=== PATIENT | female | born 1985 | race American Indian/Alaskan Native ===

== ENCOUNTER 2017-03-31 17:44 | Emergency (ER) | payer OTHER ==
[2017-03-31 18:38] LABS: Bacteria,Urine 1+ /HPF (Negative); Bilirubin,Urine NEG (Negative); Blood,Urine NEG (Negative); Ketones,Urine NEG (Negative); Leukocyte Esterase,Urine NEG (Negative); Mucus,Urine FEW /HPF; Nitrite,Urine NEG (Negative); Protein,Urine <15 mg/dL mg/dL (Negative); Urobilinogen,Urine < 2.0 mg/dL (<2.0)
[2017-03-31 18:52] LABS: Basophils % (Auto) 0.8 % (0.0-1.8); Eosinophils % (Auto) 5.1 % (0.0-4.3); Hematocrit 38.9 % (30.3-42.9); Hemoglobin 13.1 gm/dl (10.1-14.3); Mean Corpuscular HGB Conc 34 % (30-34); Mean Corpuscular Hemoglobin 30 pg (28-32); Mean Corpuscular Volume 90 fl (79-97); Platelet Count 226 K/mm3 (140-440); Red Blood Count 4.31 M/mm3 (3.65-5.03); Red Cell Distribution Width 14.5 % (13.2-15.2); White Blood Count 6.6 K/mm3 (4.5-11.0)
[2017-03-31 19:12] LABS: Alanine Aminotransferase 15 units/L (7-56); Albumin 4.1 g/dL (3.9-5); Albumin/Globulin Ratio 1.3 %; Alkaline Phosphatase 67 units/L (35-129); Anion Gap 16 mmol/L; BUN/Creatinine Ratio 16; Blood Urea Nitrogen 11 mg/dL (7-17); Calcium 9.3 mg/dL (8.4-10.2); Carbon Dioxide 24 mmol/L (22-30); Chloride 101.7 mmol/L (98-107); Glucose 91 mg/dL (65-100); Lipase 19 units/L (13-60); Potassium 4.1 mmol/L (3.6-5.0); Sodium 138 mmol/L (137-145); Total Protein 7.3 g/dL (6.3-8.2)
[2017-04-01] MEDS ORDERED: TYLENOL PO ONE (00:39)
--- NOTE | 2017-04-01 00:43 | Emergency Department Report ---
ED Female HPI - General Chief complaint: Abdominal Pain Stated complaint: BODY PAIN, SIDE PAIN Time Seen by Provider: 04/01/17 00:25 Source: patient Mode of arrival: Ambulatory Limitations: No Limitations - History of Present Illness Initial comments: 31 yo female with no significant past medical history presents to the hospital complaining abdominal pain 1 day. Patient having epigastric pain described as intermittent, dull, aching. Palpation. No alleviating factors. Patient also states she is with LMP 02/18/2017. No care. She has intermittent sharp suprapubic pain and noticed some mild brown discharge today. Patient found out she was last week when she went to the PMD for UTI symptoms. UA negative at that time. Patient continues to have dysuria and frequency. Positive nausea without vomiting or fever. This is patient's fifth and she has 2 children, one miscarriage and one reported. - Related Data Previous Rx's Medication Instructions Recorded Last Taken Type Famotidine [Pepcid] 20 mg PO BID #30 tablet 04/01/17 Unknown Rx Allergies Allergy/AdvReac Type Severity Reaction Status Date / Time No Known Allergies Allergy Unverified 03/31/17 18:04 ED Review of Systems ROS: Stated complaint: BODY PAIN, SIDE PAIN Other details as noted in HPI Comment: All other systems reviewed and negative Other: Constitutional: No fevers chills or weight loss Eyes: No eye pain visual changes or discharge ENT: No ear pain or throat pain Neck: Denies pain Respiratory: Denies cough wheezing shortness of breath Cardiovascular: Denies chest pain, palpitations, syncope GI: Denies abdominal pain, nausea, vomiting, diarrhea : as per hpi Musculoskeletal: lower back pain Skin: Denies rash, lesions, erythema Neurologic: Denies headache, numbness, weakness Psychiatric: Denies suicidal ideation, hallucinations ED Past Medical Hx - Past Medical History Previous Medical History?: No Additional medical history: heart murmur. Right pelvic kidney - Surgical History Past Surgical History?: No - Social History Smoking Status: Current Some Day Smoker Substance Use Type: None - Medications Home Medications: Home Medications Medication Instructions Recorded Confirmed Last Taken Type Famotidine [Pepcid] 20 mg PO BID #30 tablet 04/01/17 Unknown Rx ED Physical Exam - General Limitations: No Limitations - Other Other exam information: General: No limitations, patient is alert in no acute distress Head exam: Atraumatic, normocephalic Eyes exam: Normal appearance ENT: Moist mucous membrane, normal oropharynx Neck exam: Normal inspection, full range of motion, no meningismus nontender Respiratory exam: Clear to auscultation bilateral, no wheezes, rales, cranberry sorter auscultated over pulmonic area Cardiovascular: Normal rate and rhythm, positive loud systolic murmur Abdomen: Soft, nondistended, epigastric tenderness, suprapubic tenderness, with normal bowel sounds, no rebound, or guarding : No external lesions, white vaginal discharge, no CMT or adnexal tenderness, no bleeding, cervical os closed Extremity: Full range of motion normal inspection no deformity Back: Normal Inspection, full range of motion, no tenderness Neurologic: Alert, oriented x3, cranial nerves intact, no motor or sensory deficit Psychiatric: normal affect, normal mood Skin: Warm, dry, intact ED Course Vital Signs 03/31/17 03/31/17 18:00 20:42 Temperature 97 F L 97.9 F Pulse Rate 109 H 95 H Respiratory 20 14 Rate Blood Pressure 125/75 125/77 O2 Sat by Pulse 100 100 Oximetry - Reevaluation(s) Reevaluation #1: 04/01/17 00:42 Tylenol ordered for pain. Patient is not nauseous at this time - Consultations Consultation #1: 04/01/17 02:19 Case discussed with care services manager at [facility]. Recommend ectopic precautions repeat hCG in 2 days ED Medical Decision Making - Lab Data Result diagrams: 03/31/17 18:39 03/31/17 18:39 Lab Results 03/31/17 03/31/17 03/31/17 Range/Units 18:12 18:39 18:39 WBC 6.6 (4.5-11.0) K/mm3 RBC 4.31 (3.65-5.03) M/mm3 Hgb 13.1 (10.1-14.3) gm/dl Hct 38.9 (30.3-42.9) % MCV 90 (79-97) fl MCH 30 (28-32) pg MCHC 34 (30-34) % RDW 14.5 (13.2-15.2) % Plt Count 226 (140-440) K/mm3 Lymph % (Auto) 29.6 (13.4-35.0) % [place] % (Auto) 11.2 H (0.0-7.3) % Eos % (Auto) 5.1 H (0.0-4.3) % Baso % (Auto) 0.8 (0.0-1.8) % Lymph # 2.0 (1.2-5.4) K/mm3 [place] # 0.7 (0.0-0.8) K/mm3 Eos # 0.3 (0.0-0.4) K/mm3 Baso # 0.1 (0.0-0.1) K/mm3 Seg Neutrophils % 53.3 (40.0-70.0) % Seg Neutrophils # 3.5 (1.8-7.7) K/mm3 Sodium 138 (137-145) mmol/L Potassium 4.1 (3.6-5.0) mmol/L Chloride 101.7 (98-107) mmol/L Carbon Dioxide 24 (22-30) mmol/L Anion Gap 16 mmol/L BUN 11 (7-17) mg/dL Creatinine 0.7 (0.7-1.2) mg/dL Estimated GFR > 60 ml/min BUN/Creatinine Ratio 16 % Glucose 91 (65-100) mg/dL Calcium 9.3 (8.4-10.2) mg/dL Total Bilirubin 0.40 (0.1-1.2) mg/dL AST 17 (5-40) units/L ALT 15 (7-56) units/L Alkaline Phosphatase 67 (35-129) units/L Total Protein 7.3 (6.3-8.2) g/dL Albumin 4.1 (3.9-5) g/dL Albumin/Globulin Ratio 1.3 % Lipase 19 (13-60) units/L HCG, Quant (0-4) mIU/mL Urine Color Yellow (Yellow) Urine Turbidity Clear (Clear) Urine pH 6.0 (5.0-7.0) Ur Specific [place] 1.020 (1.003-1.030) Urine Protein <15 mg/dl (Negative) mg/dL Urine Glucose (UA) Neg (Negative) mg/dL Urine Ketones Neg (Negative) mg/dL Urine Blood Neg (Negative) Urine Nitrite Neg (Negative) Urine Bilirubin Neg (Negative) Urine Urobilinogen < 2.0 (<2.0) mg/dL Ur Leukocyte Esterase Neg (Negative) Urine WBC (Auto) 1.0 (0.0-6.0) /HPF Urine RBC (Auto) 3.0 (0.0-6.0) /HPF U Epithel Cells (Auto) 10.0 (0-13.0) /HPF Urine Bacteria (Auto) 1+ (Negative) /HPF Urine Mucus Few /HPF Blood Type 03/31/17 04/01/17 Range/Units 18:39 01:37 WBC (4.5-11.0) K/mm3 RBC (3.65-5.03) M/mm3 Hgb (10.1-14.3) gm/dl Hct (30.3-42.9) % MCV (79-97) fl MCH (28-32) pg MCHC (30-34) % RDW (13.2-15.2) % Plt Count (140-440) K/mm3 Lymph % (Auto) (13.4-35.0) % [place] % (Auto) (0.0-7.3) % Eos % (Auto) (0.0-4.3) % Baso % (Auto) (0.0-1.8) % Lymph # (1.2-5.4) K/mm3 [place] # (0.0-0.8) K/mm3 Eos # (0.0-0.4) K/mm3 Baso # (0.0-0.1) K/mm3 Seg Neutrophils % (40.0-70.0) % Seg Neutrophils # (1.8-7.7) K/mm3 Sodium (137-145) mmol/L Potassium (3.6-5.0) mmol/L Chloride (98-107) mmol/L Carbon Dioxide (22-30) mmol/L Anion Gap mmol/L BUN (7-17) mg/dL Creatinine (0.7-1.2) mg/dL Estimated GFR ml/min BUN/Creatinine Ratio % Glucose (65-100) mg/dL Calcium (8.4-10.2) mg/dL Total Bilirubin (0.1-1.2) mg/dL AST (5-40) units/L ALT (7-56) units/L Alkaline Phosphatase (35-129) units/L Total Protein (6.3-8.2) g/dL Albumin (3.9-5) g/dL Albumin/Globulin Ratio % Lipase (13-60) units/L HCG, Quant 2277 H (0-4) mIU/mL Urine Color (Yellow) Urine Turbidity (Clear) Urine pH (5.0-7.0) Ur Specific [place] (1.003-1.030) Urine Protein (Negative) mg/dL Urine Glucose (UA) (Negative) mg/dL Urine Ketones (Negative) mg/dL Urine Blood (Negative) Urine Nitrite (Negative) Urine Bilirubin (Negative) Urine Urobilinogen (<2.0) mg/dL Ur Leukocyte Esterase (Negative) Urine WBC (Auto) (0.0-6.0) /HPF Urine RBC (Auto) (0.0-6.0) /HPF U Epithel Cells (Auto) (0-13.0) /HPF Urine Bacteria (Auto) (Negative) /HPF Urine Mucus /HPF Blood Type A POSITIVE Microbiology 04/01/17 00:50 Vaginal Wet Prep - Final Microbiology 04/01/17 00:50 Wet Prep - Final Vaginal - Radiology Data Radiology results: report reviewed Transvaginal/pelvic US: No IUP or ectopic. Functional 1.8 cm cyst in the left ovary. No free fluid Abdominal ultrasound: Small polyp in the neck of the gallbladder. Right-sided pelvic kidney. Left kidney not identified. No acute process - Medical Decision Making No IUP identified despite beta Quant 2277. 2 day follow-up recommended. Ectopic precautions will be provided. Patient does not require RhoGAM based on blood type lack of active bleeding - Differential Diagnosis ectopic, threatened AB, cervicitis, vaginitis, gastritis, biliary colic Critical Care Time: No Critical care attestation.: If time is entered above; I have spent that time in minutes in the direct care of this critically ill patient, excluding procedure time. ED Disposition Clinical Impression: Threatened , Type A blood, Rh positive, Pelvic kidney, Epigastric pain Ovarian cyst Qualifiers: Laterality: left Qualified Code(s): N83.202 - Unspecified ovarian cyst, left side Disposition: - TO HOME OR SELFCARE Is pt being admited?: No Does the pt Need Aspirin: No Condition: Stable Instructions: Ectopic (ED), Threatened Miscarriage (ED), Gastroesophageal Reflux Disease (ED), Ovarian Cyst (ED) Additional Instructions: Your Ultrasound today does not show any signs of . This can mean that either it is an early , you are having a miscarriage, or have a in your tubes that is not seen yet. He was up and provided discharge instructions for threatened miscarriage as well as ectopic . You need to follow back up in 2 days with the [facility] doctor for repeat blood work to ensure that you baby hormone is increasing at the appropriate rate. Today your level is 2277. If you are unable to see a [facility] doctor in 2 days you may return to the ER for repeat by work. If symptoms worsen as indicated by your discharge instructors return to the ER for reevaluation. Take Tylenol as needed for pain and you may take [id number] vitamins. Your gonorrhea and chlamydia tests are pending and take approximately 3-4 days result. You may obtain results in medical records with a photo ID. You may also obtain results through the follow-up doctor office via medical record request. Prescriptions: Famotidine [Pepcid] 20 mg PO BID #30 tablet Referrals: [facility] [Provider Group] - 2-3 Days (blood work needs to be repeated in 2 days. Go to [facility] or return here on 04/03) Time of Disposition: 02:41
--- NOTE | 2017-04-01 01:58 | Ultrasound Report ---
FINAL REPORT EXAM: US ABDOMEN COMPLETE HISTORY: epigastric pain TECHNIQUE: Routine sonographic evaluation was obtained of the abdomen. FINDINGS: The gallbladder is normal in size and wall thickness. There is a 2-3 millimeter polyp in the neck of the gallbladder. Stones are not seen. The common bile duct measures 4 millimeters in diameter. The liver is normal size and echotexture. The abdominal aorta is normal in caliber. The left kidney is not seen. The right kidney is pelvic in location and measures 7.7 cm x 3.4 cm x 5 cm. The spleen is normal in size and echotexture. The pancreas is normal size and echotexture. Free fluid is not seen. IMPRESSION: Small polyp in the neck of the gallbladder. Right-sided pelvic kidney. The left kidney is not identified. No acute process identified.
--- NOTE | 2017-04-01 02:01 | Ultrasound Report ---
FINAL REPORT EXAM: US OB \T\lt; = 14 WEEKS FETUS HISTORY: vag spotting, pelvic pain, TECHNIQUE: Transabdominal and transvaginal imaging was obtained of the pelvis. FINDINGS: The uterus is retroverted measuring 9.9 cm x 4.3 cm x 7.8 cm. The myometrium is homogeneous. The endometrial thickness is 14.9 millimeters. There is no evidence of an IUP at this time. Free fluid is not seen. The maternal right ovary is normal size contour and echotexture measuring 3.7 cm x 1.0 cm x 2.8 cm. The maternal left ovary measures 2.7 cm x 2.1 cm x 2.9 cm. There is a 1.8 cm functional cyst in left ovary. IMPRESSION: No evidence of an IUP or ectopic at this time. 1.8 cm functional cyst in the left ovary. No free fluid.
--- NOTE | 2017-04-01 02:03 | Ultrasound Report ---
FINAL REPORT EXAM: US OB TRANSVAGINAL HISTORY: vag spotting, pelvic pain, TECHNIQUE: Transvaginal imaging was obtained of the pelvis. FINDINGS: The uterus measures 9.9 cm x 4.3 cm x 7.8 cm. The endometrial thickness is 14.9 millimeters. There is no evidence of an IUP at this time. Free fluid is not seen. The maternal right ovary is normal size contour and echotexture measures 3.7 cm x 1.0 cm x 2.8 cm. The maternal left ovary measures 2.7 cm x 2.1 cm x 2.9 cm. Within the left ovary is a functional cyst measuring 1.8 cm in diameter. IMPRESSION: No evidence of an IUP or ectopic at this time. 1.8 cm functional cyst in left ovary.
[2017-04-01] MEDS ORDERED: TYLENOL ONE (02:58)
[2017-04-01 03:08] VITALS: BP 117/63
== END 2017-04-01 03:07 | disposition home or self-care (01) ==
LOC: ED 17:44
DX: O20.0 Threatened abortion (principal); O36.0111 Maternal care for anti-D [Rh] antibodies, first trimester, fetus 1; R10.13 Epigastric pain; F17.200 Nicotine dependence, unspecified, uncomplicated
CPT/HCPCS: 36415; 76700; 76801; 76817; 80053; 81001; 83690; 84702; 85025; 86850; 86900; 86901; 87210; 87591